=== PATIENT | male | born 1995 | race Caucasian/White ===

== ENCOUNTER 2017-09-13 00:50 | Inpatient (IN) | payer OTHER ==
[2017-09-13] MEDS ORDERED: ZOFRAN IV ONE (00:55)
[2017-09-13] MEDS ORDERED: ZOFRAN ONE (00:59)
--- NOTE | 2017-09-13 01:02 | Emergency Department Report ---
HPI - General Time Seen by Provider: 09/13/17 00:57 - HPI HPI: This is a 22-year-old male presents to the emergency department via EMS with altered mental status. The parents are currently bedside and say that his sister was talking with him this evening when he began crying, and then went unresponsive and fell to the ground. 911 was called and the patient has been unresponsive since. He was given some Narcan without much relief. He has a history of previous back surgery back in October for which she used to take Burdine and Flexeril but it is unknown whether he was taking these medications this evening. Family also denies that there was any excessive alcohol use this evening. They say that he has been depressed lately but he does not have any diagnosed psychiatric conditions and is not on any psychiatric medications. Patient is currently a poor historian secondary to his current medical condition and acuity. ED Review of Systems ROS: Stated complaint: OVERDOSE Other details as noted in HPI Comment: Unobtainable due to pts medical conditions Physical Exam - Physical Exam Physical Exam: GENERAL: The patient is ill-appearing and unresponsive. HENT: Normocephalic. Atraumatic. Patient has moist mucous membranes. EYES: Pupils equal reactive to light bilaterally. NECK: Supple. Trachea is midline. CHEST/LUNGS: Clear to auscultation. There is no respiratory distress noted. HEART/CARDIOVASCULAR: Regular. There is no tachycardia. There is no gallop rub or murmur. ABDOMEN: Abdomen is soft, nontender. Patient has normal bowel sounds. There is no abdominal distention. SKIN: Skin is warm and dry. NEURO: The patient is mostly unresponsive. He will withdraw slightly from painful stimuli. He has a gag reflex. Otherwise he is nonverbal and not following any commands. MUSCULOSKELETAL: There is no tenderness or deformity. There is no evidence of acute injury. ED Course - Reevaluation(s) Reevaluation #1: The patient is starting to become more awake and alert. He denies taking any pills or medication this evening but says that he did attempt to kill himself by overdose of Burdine and/or Flexeril yesterday. Currently he denies any discomfort but does not remember coming to the emergency department. 09/13/17 02:25 ED Medical Decision Making - Lab Data Result diagrams: 09/13/17 01:14 11/19/17 01:14 - Radiology Data Radiology results: report reviewed PROCEDURE: CT HEAD/BRAIN WO CON TECHNIQUE: Computerized tomography of the head was performed without contrast material. HISTORY: Altered Mental Status COMPARISON: No prior studies are available for comparison. FINDINGS: Skull and scalp: Normal. Paranasal sinuses: There are bilateral polyps or retention cysts in the maxillary sinuses. There are no air-fluid levels.. Ventricles and subarachnoid spaces: Normal. Cerebrum: No evidence of hemorrhage, acute infarction or mass . Cerebellum and brainstem: No evidence of hemorrhage, acute infarction or mass. Vasculature: Normal. Comments: None. IMPRESSION: Normal Examination Transcribed By: CO Dictated By: CONCETTA MO MD Electronically Authenticated By: CONCETTA MO MD Signed Date/Time: 09/12/172224 - Medical Decision Making 22-year-old male presents after being unresponsive at home. He did not have any reaction to the Narcan, at least at first. The patient did have a gag reflex and withdrew from painful stimuli. He had some stable appearing vitals including no hypoxia and therefore the patient avoided intubation upon presentation. His labs show a elevated lactic acid level and a blood alcohol level of 0.13 and urine drug screen positive for marijuana. He was reevaluated multiple times over multiple hours and has steadily become more awake and alert. He does not remember how he got to the emergency department but is AAO 3 with intact cranial nerves at this time. He admits to some recent depression and a suicide attempt 24 hours ago by overdose of his Burdine. Urine drug screen is currently negative for opiates and his acetaminophen level is negative so this does not appear to add up, but nonetheless the patient has been made a 1013. He will be admitted medically first to trend the lactic acid level and monitor to make sure there is no relapse into his sedation or altered mental status and he has been accepted for admission by the hospitalist, Dr Monaco, who has asked for me to place bridging orders to the med / surg floor. - Differential Diagnosis overdose, depression, bipolar disorder, alcohol abuse, sepsis Critical Care Time: No Critical care attestation.: If time is entered above; I have spent that time in minutes in the direct care of this critically ill patient, excluding procedure time. ED Disposition Clinical Impression: Alcohol abuse, Suicidal ideations, Lactic acid increased Altered mental status Qualifiers: Altered mental status type: unspecified Qualified Code(s): R41.82 - Altered mental status, unspecified Disposition: DC-09 OP ADMIT IP TO THIS HOSP Is pt being admited?: Yes Condition: Fair Referrals: PRIMARY CARE,MD [Primary Care Provider] - 3-5 Days Time of Disposition: 03:41
[2017-09-13 01:11] LABS: Urine Drugs of Abuse Note Disclamer
[2017-09-13 01:31] LABS: Basophils % (Auto) 0.8 % (0.0-1.8); Eosinophils % (Auto) 0.8 % (0.0-4.3); Hematocrit 47.9 % (35.5-45.6); Hemoglobin 15.3 gm/dl (11.8-15.2); Mean Corpuscular HGB Conc 32 % (32-34); Mean Corpuscular Hemoglobin 28 pg (28-32); Mean Corpuscular Volume 89 fl (84-94); Platelet Count 261 K/mm3 (140-440); Red Blood Count 5.41 M/mm3 (3.65-5.03); Red Cell Distribution Width 13.9 % (13.2-15.2); White Blood Count 7.4 K/mm3 (4.5-11.0)
[2017-09-13 01:36] LABS: Bilirubin,Urine NEG (Negative); Blood,Urine NEG (Negative); Ketones,Urine NEG (Negative); Leukocyte Esterase,Urine NEG (Negative); Nitrite,Urine NEG (Negative); Protein,Urine <15 mg/dL mg/dL (Negative); RBC,Urine < 1.0 /HPF (0.0-6.0); Urobilinogen,Urine < 2.0 mg/dL (<2.0)
[2017-09-13 01:39] LABS: Alanine Aminotransferase 13 units/L (7-56); Albumin 4.5 g/dL (3.9-5); Albumin/Globulin Ratio 1.7 %; Alkaline Phosphatase 84 units/L (35-129); Anion Gap 20 mmol/L; BUN/Creatinine Ratio 10; Blood Urea Nitrogen 8 mg/dL (9-20); Carbon Dioxide 24 mmol/L (22-30); Creatine Kinase 204 units/L (55-170); Glucose 84 mg/dL (75-100); Potassium 3.6 mmol/L (3.6-5.0); Sodium 145 mmol/L (137-145); Total Protein 7.1 g/dL (6.3-8.2)
[2017-09-13 01:42] LABS: INR 1.03 (0.87-1.13)
[2017-09-13 01:43] LABS: Partial Thromboplastin Time 25.9 Sec. (24.2-36.6)
[2017-09-13] MEDS ORDERED: NACL 0.9% 1000 ML 1,000 ML IV ONE (02:11)
--- NOTE | 2017-09-13 02:33 | Cat Scan Report ---
FINAL REPORT PROCEDURE: CT HEAD/BRAIN WO CON TECHNIQUE: Computerized tomography of the head was performed without contrast material. HISTORY: Altered Mental Status COMPARISON: No prior studies are available for comparison. FINDINGS: Skull and scalp: Normal. Paranasal sinuses: There are bilateral polyps or retention cysts in the maxillary sinuses. There are no air-fluid levels.. Ventricles and subarachnoid spaces: Normal. Cerebrum: No evidence of hemorrhage, acute infarction or mass . Cerebellum and brainstem: No evidence of hemorrhage, acute infarction or mass. Vasculature: Normal. Comments: None. IMPRESSION: Normal Examination
--- NOTE | 2017-09-13 04:00 | History and Physical Report ---
History of Present Illness Date of examination: 09/13/17 Chief complaint: Altered mental status History of present illness: 22-year-old male with medical history significant for depression presented to the emergency department for the complaints of altered mental status. Patient tried to kill himself with overdose of hydrocodone because his brother 3 years ago. Patient has confusion this afternoon. Patient didn't passed out, didn't have any seizure episode. No fever, chills, cough, abdominal pain. REVIEW OF SYSTEMS: GENERAL: no weight change, no fatigue, no fever HEAD: no head ache EYES: no blurry vision, no acute visual loss EARS: no hearing loss, no discharge, no earache NOSE: no stuffiness, no sneezing, no discharge MOUTH, THROAT AND NECK: no bleeding gums, no sore throat, no swollen neck CARDIAC: no palpitations, no dyspnea on exertion, no orthopnea, no PND, no edema , no chest pain RESPIRATORY: no shortness of breath, no wheeze, no cough, no sputum, no hemoptysis, no asthma GI: no decreased appetite, no nausea, no vomiting, no dysphagia, no diarrhea, no constipation, no abdominal pain URINARY: no change in frequency, no urgency, no polyuria, no hematuria, no incontinence MUSCULOSKELETAL: no muscle weakness, no pain, no joint stiffness NEUROLOGIC: no loss of sensation/numbness, no tingling, no tremors, no weakness/ paralysis HEMATOLOGIC: no anemia, no easy bruising SKIN: no rashes ENDOCRINE: no heat/cold intolerance, no polyuria, no polydipsia, no thyroid problems, no diabetes PSYCHIATRIC: no anxiety, no depression, no suicidal ideations Past History Past Medical History: other (depression) Past Surgical History: Other (back surgery) Social history: smoking (smokes marijuana), alcohol abuse (drinks alcohol every day), prescription drug abuse (hydrocodone), full code Family history: no significant family history Medications and Allergies Active Meds: Active Medications Heparin Sodium (Porcine) (Heparin) 5,000 unit SUB-Q Q8HR YULIANA Exam - Physical Exam Narrative exam: Not in cardiopulmonary distress. The patient appeared well nourished and normally developed. Vital signs as documented. Head exam is unremarkable. No scleral icterus . Neck is without jugular venous distension, thyromegaly, or carotid bruits. Lungs are clear to auscultation. Cardiac exam reveals regular rate and Rhythm. First and second heart sounds normal. No murmurs, rubs or gallops. Abdominal exam reveals normal bowel sounds, no masses, no organomegaly and no aortic enlargement. Extremities are nonedematous and both femoral and pedal pulses are normal. YARDING ENGINEER: Alert and oriented 3. No focal weakness. - Constitutional Vitals: Temp Pulse Resp BP Pulse Ox 98.0 F 76 11 L 120/57 100 09/13/17 01:15 09/13/17 03:30 09/13/17 03:30 09/13/17 03:30 09/13/17 01:15 Results - Labs CBC & Chem 7: 09/13/17 01:14 09/13/17 01:14 Labs: Laboratory Last Values WBC 7.4 K/mm3 (4.5-11.0) 09/13/17 01:14 RBC 5.41 M/mm3 (3.65-5.03) H 09/13/17 01:14 Hgb 15.3 gm/dl (11.8-15.2) H 09/13/17 01:14 Hct 47.9 % (35.5-45.6) H 09/13/17 01:14 MCV 89 fl (84-94) 09/13/17 01:14 MCH 28 pg (28-32) 09/13/17 01:14 MCHC 32 % (32-34) 09/13/17 01:14 RDW 13.9 % (13.2-15.2) 09/13/17 01:14 Plt Count 261 K/mm3 (140-440) 09/13/17 01:14 Lymph % (Auto) 32.8 % (13.4-35.0) 09/13/17 01:14 [place] % (Auto) 7.0 % (0.0-7.3) 09/13/17 01:14 Eos % (Auto) 0.8 % (0.0-4.3) 09/13/17 01:14 Baso % (Auto) 0.8 % (0.0-1.8) 09/13/17 01:14 Lymph # 2.4 K/mm3 (1.2-5.4) 09/13/17 01:14 [place] # 0.5 K/mm3 (0.0-0.8) 09/13/17 01:14 Eos # 0.1 K/mm3 (0.0-0.4) 09/13/17 01:14 Baso # 0.1 K/mm3 (0.0-0.1) 09/13/17 01:14 Seg Neutrophils % 58.6 % (40.0-70.0) 09/13/17 01:14 Seg Neutrophils # 4.3 K/mm3 (1.8-7.7) 09/13/17 01:14 PT 14.0 Sec. (12.2-14.9) 09/13/17 01:14 INR 1.03 (0.87-1.13) 09/13/17 01:14 APTT 25.9 Sec. (24.2-36.6) 09/13/17 01:14 Sodium 145 mmol/L (137-145) 09/13/17 01:14 Potassium 3.6 mmol/L (3.6-5.0) 09/13/17 01:14 Chloride 105.0 mmol/L (98-107) 09/13/17 01:14 Carbon Dioxide 24 mmol/L (22-30) 09/13/17 01:14 Anion Gap 20 mmol/L 09/13/17 01:14 BUN 8 mg/dL (9-20) L 09/13/17 01:14 Creatinine 0.8 mg/dL (0.8-1.5) 09/13/17 01:14 Estimated GFR > 60 ml/min 09/13/17 01:14 BUN/Creatinine Ratio 10 % 09/13/17 01:14 Glucose 84 mg/dL (75-100) 09/13/17 01:14 Lactic Acid 2.80 mmol/L (0.7-2.0) H* 09/13/17 01:14 Calcium 9.0 mg/dL (8.4-10.2) 09/13/17 01:14 Total Bilirubin 0.60 mg/dL (0.1-1.2) 09/13/17 01:14 AST 15 units/L (5-40) 09/13/17 01:14 ALT 13 units/L (7-56) 09/13/17 01:14 Alkaline Phosphatase 84 units/L (35-129) 09/13/17 01:14 Ammonia 37.0 umol/L (25-60) 09/13/17 01:14 Total Creatine Kinase 204 units/L (55-170) H 09/13/17 01:14 Troponin T < 0.010 ng/mL (0.00-0.029) 09/13/17 01:14 Total Protein 7.1 g/dL (6.3-8.2) 09/13/17 01:14 Albumin 4.5 g/dL (3.9-5) 09/13/17 01:14 Albumin/Globulin Ratio 1.7 % 09/13/17 01:14 Urine Color Straw (Yellow) 09/13/17 Unknown Urine Turbidity Clear (Clear) 09/13/17 Unknown Urine pH 7.0 (5.0-7.0) 09/13/17 Unknown Ur Specific [place] 1.002 (1.003-1.030) L 09/13/17 Unknown Urine Protein <15 mg/dl mg/dL (Negative) 09/13/17 Unknown Urine Glucose (UA) Neg mg/dL (Negative) 09/13/17 Unknown Urine Ketones Neg mg/dL (Negative) 09/13/17 Unknown Urine Blood Neg (Negative) 09/13/17 Unknown Urine Nitrite Neg (Negative) 09/13/17 Unknown Urine Bilirubin Neg (Negative) 09/13/17 Unknown Urine Urobilinogen < 2.0 mg/dL (<2.0) 09/13/17 Unknown Ur Leukocyte Esterase Neg (Negative) 09/13/17 Unknown Urine WBC (Auto) 1.0 /HPF (0.0-6.0) 09/13/17 Unknown Urine RBC (Auto) < 1.0 /HPF (0.0-6.0) 09/13/17 Unknown Salicylates < 0.3 mg/dL (2.8-20.0) L 09/13/17 01:14 Urine Opiates Screen Presumptive negative 09/13/17 Unknown Urine Methadone Screen Presumptive negative 09/13/17 Unknown Acetaminophen < 15.0 ug/mL (10.0-30.0) 09/13/17 01:14 Ur Barbiturates Screen Presumptive negative 09/13/17 Unknown Ur Phencyclidine Scrn Presumptive negative 09/13/17 Unknown Ur Amphetamines Screen Presumptive negative 09/13/17 Unknown U Benzodiazepines Scrn Presumptive negative 11/19/17 Unknown Urine Cocaine Screen Presumptive negative 09/13/17 Unknown U Marijuana (THC) Screen Presumptive positive 09/13/17 Unknown Drugs of Abuse Note Disclamer 09/13/17 Unknown Plasma/Serum Alcohol 0.13 gm% (0-0.07) H 09/13/17 01:14 Assessment and Plan Assessment and plan: Confusion Suicidal intent Drug overdose Lactic acidosis Alcohol abuse risk for DT - patient is on 1013 - We'll put him on IV fluids - Psych consult - [facility] protocol DVT prophylaxis - Lovenox Disposition - Admit to medical floor Advance Directives: Yes VTE prophylaxis?: Chemical Plan of care discussed with patient/family: Yes
--- NOTE | 2017-09-13 04:45 | XRay Report ---
FINAL REPORT PROCEDURE: XR CHEST 1V AP TECHNIQUE: Chest radiograph anteroposterior view. CPT 14185 HISTORY: Altered Mental Status COMPARISON: No prior studies are available for comparison. FINDINGS: Heart: Normal. Mediastinum/Vessels: Normal. Lungs/Pleural space: Normal. Bony thorax: No acute osseous abnormality. Life support devices: None. IMPRESSION: No acute cardiopulmonary abnormality.
[2017-09-13] MEDS ORDERED: HEPARIN SUB-Q SCH (06:00)
[2017-09-13] MEDS: LOVENOX SUB-Q SCH (10:42)
--- NOTE | 2017-09-13 12:16 | Consultation ---
History of Present Illness - Reason for Consult Consult date: 09/13/17 Reason for consult: Mental Health Evaluation Requesting physician: HOLLIE GAINES - Chief Complaint Chief complaint: "I made a mistake" - History of Present Psychiatric Illness This is a 22-year-old male presents to the emergency department via EMS with altered mental status. Today patient is calm and cooperative, but withdrawn during the assessment. He stated that depression has been a issue for him since he was a teenager. He stated that his best friend, his brother committed suicide a couple years ago which exacerbated his depression. He stated being unemployed and that his "bills" are piling up on him. He stated that he wanted to "" when he took a hand full of Parks pills, because of sadness, thinking about his brother, and how hard life has been to him. He stated that he felt like this ("overwhelmed") in the past, but never thought about killing himself. He stated that he took an antidepressant before, but could not ID the medication. He stated drinking alcohol (etoh) more recently and smoking marijuana everyday to ease the depression. He stated that he should have called the crisis hotline before taking the pills. He denies SI/HI's and AVH's. He denies sleep disturbance, but admit to a poor appetite the past month. He denies any manic episodes. Medications and Allergies Allergies Allergy/AdvReac Type Severity Reaction Status Date / Time No Known Allergies Allergy Unverified 09/13/17 04:43 Active Meds: Active Medications Enoxaparin Sodium (Lovenox) 40 mg SUB-Q DAILY YULIANA Last Admin: 09/13/17 10:42 Dose: 40 mg Sodium Chloride (Nacl 0.9% 1000 Ml) 1,000 mls @ 150 mls/hr IV DIRECT YULIANA Past psychiatric history - Past Medical History Past Medical History: No medical history Past Surgical History: No surgical history - past Psychiatric treatment and history Psych: Depression psychiatric treatment history: Saw a psychiatrist as an adolescent for depression. A fam hx of depression. - Social History Social history: lives with family (Pending his GED) Mental Status Exam - Vital signs Last Vital Signs Temp 98.7 F 09/13/17 09:17 Pulse 63 09/13/17 09:17 Resp 18 09/13/17 09:17 BP 123/67 09/13/17 09:17 Pulse Ox 99 09/13/17 09:17 - Exam Narrative exam: MSE: Appearance: calm, cooperative Behavior: regular eye contact Speech: regular rate and tone Mood: withdrawn Affect: flat Thought Process: linear Thought Content: denies SI/HI's and AVH's Motor Activity: ambulatory Cognition: A/O x3 Insight: variable Judgment: variable Results Result Diagrams: 09/13/17 01:14 09/13/17 01:14 Abnormal lab results 09/13/17 09/13/17 09/13/17 Range/Units 01:14 01:14 01:14 RBC 5.41 H (3.65-5.03) M/mm3 Hgb 15.3 H (11.8-15.2) gm/dl Hct 47.9 H (35.5-45.6) % BUN 8 L (9-20) mg/dL Lactic Acid 2.80 H* (0.7-2.0) mmol/L Total Creatine Kinase 204 H (55-170) units/L Ur Specific [place] (1.003-1.030) Salicylates (2.8-20.0) mg/dL Plasma/Serum Alcohol (0-0.07) gm% 09/13/17 09/13/17 09/13/17 Range/Units 01:14 01:14 Unknown RBC (3.65-5.03) M/mm3 Hgb (11.8-15.2) gm/dl Hct (35.5-45.6) % BUN (9-20) mg/dL Lactic Acid (0.7-2.0) mmol/L Total Creatine Kinase (55-170) units/L Ur Specific [place] 1.002 L (1.003-1.030) Salicylates < 0.3 L (2.8-20.0) mg/dL Plasma/Serum Alcohol 0.13 H (0-0.07) gm% All other labs normal. Assessment and Plan Assessment and plan: Impression: MDD Severe Type. Alcohol Use DO. Substance Use DO (marijuana). Today patient is calm and cooperative, but withdrawn during the assessment. Alcohol serum on admission 0.13. DDx: R/O Bipolar, R/O Alcohol Induced Mood DO, R/O Substance Induced Mood DO Recommendation/Plan: Continue 1013 with placement to inpatient psy services. Start Remeron 15 mg PO HS for depression. Remeron may stimulate patient's appetite. Discussed possible suicidality/medication induced gris with patient reference Remeron. Discussed with patient the importance to abstain from recreational drug use and excessive alcohol consumption (etoh). Discussed generalized coping skills with patient.
--- NOTE | 2017-09-13 13:00 | Event Note ---
Date: 09/13/17 Patient seen and examined in no acute distress counseling provided about alcohol abuse 15 minutes spent. Repeat lactic acidosis. Continue gentle hydration.
[2017-09-13] MEDS: NACL 0.9% 1000 ML 1,000 ML IV SCH (13:40)
[2017-09-13] MEDS ORDERED: REMERON PO SCH (22:00)
[2017-09-14] MEDS: NACL 0.9% 1000 ML 1,000 ML IV SCH (00:09)
[2017-09-14] MEDS: LOVENOX SUB-Q SCH (09:52)
--- NOTE | 2017-09-14 11:27 | Progress Note ---
Subjective - Reason for Consult Consult date: 09/14/17 Reason for consult: Psychiatry Follow-up - Chief Complaint Chief complaint: "My family was here yesterday" This is a 22-year-old male presents to the emergency department via EMS with altered mental status. Today patient is calm and cooperative during the assessment. He stated that his family came to see him yesterday. He stated that he "see hope" once he is released from the 1013. He denies SI/HI's and AVH' s. He rate his depression 5/10, with 10 being the worse. He denies any side effects of his medication. Mental Status Exam - Vital signs Last Vital Signs Temp 98.2 F 09/14/17 08:37 Pulse 60 09/14/17 08:37 Resp 18 09/14/17 08:37 BP 99/45 09/14/17 08:37 Pulse Ox 99 09/14/17 08:37 - Exam Narrative exam: MSE: Appearance: calm, cooperative Behavior: regular eye contact Speech: regular rate and tone Mood: "okay" Affect: flat Thought Process: linear Thought Content: denies SI/HI's and AVH's Motor Activity: ambulatory Cognition: A/O x3 Insight: variable Judgment: variable Assessment and Plan Impression: MDD Severe Type. Alcohol Use DO. Substance Use DO (marijuana). Today patient is calm and cooperative during the assessment. Alcohol serum on admission 0.13. DDx: R/O Bipolar, R/O Alcohol Induced Mood DO, R/O Substance Induced Mood DO Recommendation/Plan: Continue 1013 with placement to [facility] today. Continue Remeron 15 mg PO HS for depression. Remeron may stimulate patient's appetite. Discussed possible suicidality/medication induced gris with patient reference Remeron. Discussed with patient the importance to abstain from recreational drug use and excessive alcohol consumption (etoh). Discussed generalized coping skills with patient.
--- NOTE | 2017-09-14 13:32 | Discharge Summary ---
Providers - Providers Date of Admission: 09/13/17 03:41 Date of discharge: 09/14/17 Attending physician: RAGHU MANN 09/13/17 04:02 Consult to Mental Health [CONS] Routine Reason For Exam: sucidal attempt Place consult to:: mental health Notified:: yes Primary care physician: LEATHER CARVER Hospitalization Condition: Stable Hospital course: Patient presented with ams -Alcohol intoxication, last vodka with juice was Thursday, 0900. - No DTs now - MDD Severe Type. Alcohol Use DO. Substance Use DO (marijuana). Today patient is calm and cooperative during the assessment. Alcohol serum on admission 0.13. -Drug OD per psych: "Recommendation/Plan: Continue 1013 with placement to [facility] today. Continue Remeron 15 mg PO HS for depression. Remeron may stimulate patient's appetite. Discussed possible suicidality/medication induced gris with patient reference Remeron. Discussed with patient the importance to abstain from recreational drug use and excessive alcohol consumption (etoh). Discussed generalized coping skills with patient." Disposition: DC/TX-65 PSY HOSP/PSY UNIT Time spent for discharge: 32 minutes Core Measure Documentation - Palliative Care Palliative Care/ Comfort Measures: Not Applicable - Core Measures Any of the following diagnoses?: none - VTE Discharge Requirements Deep Vein Thrombosis/Pulmonary Embolism Present on Admission: No Has pt received <5 days of overlap therapy or INR<2.0: No Anticoagulant overlap therapy prescribed at discharge: No Contraindication No Overlap Therapy order at DC: Not Indicated Exam - Physical Exam Narrative exam: GEN: WDWN, NAD, AWAKE, ALERT, ORIENTATED 3 HEENT: NCAT, EOMI, PERRL, OP Clear NECK: supple, no adenopathy, no thyromegaly, no JVD CVS/HEART: RRR, NORMAL S1S2, NO JVD, pulses present bilaterally CHEST/LUNGS: CTA B, Symmetrical chest expansion, good air entry bilaterally GI/Abdomen: soft, NTND, good bowel sounds, no guarding or rebound /Bladder: no suprapubic tenderness, no CVA or paraspinal tenderness EXT/Skin: no c/c/e, no obvious rash MSK: FROM x 4 Neuro: CN 2-12 grossly intact, no focal deficits, no tremors Psych: calm - Constitutional Vitals: Temp Pulse Resp BP Pulse Ox 98.2 F 60 18 99/45 99 11/20/17 08:37 09/14/17 08:37 09/14/17 08:37 09/14/17 08:37 09/14/17 08:37 Plan Activity: no driving until cleared by PCP, other (no strenous activity until cleared by pcp) Diet: regular Follow up with: PRIMARY CARE, [Primary Care Provider] - 3-5 Days Prescriptions: chlordiazePOXIDE [Librium] 50 mg PO Q8H #3 day
[2017-09-14 15:18] VITALS: BP 111/53
== END 2017-09-14 15:30 | DRG 917 ==
LOC: ED 00:50 → 3A 03:41
PROVIDERS: ADMIT Internal Medicine; ATTEND Internal Medicine
DX: T40.692A Poisoning by other narcotics, intentional self-harm, initial encounter (principal); G92 Toxic encephalopathy; R45.851 Suicidal ideations; E87.2 Acidosis; R41.82 Altered mental status, unspecified; F10.129 Alcohol abuse with intoxication, unspecified; F12.90 Cannabis use, unspecified, uncomplicated; F32.9 Major depressive disorder, single episode, unspecified; T48.1X2A Poisoning by skeletal muscle relaxants [neuromuscular blocking agents], intentional self-harm, initial encounter; Y92.89 Other specified places as the place of occurrence of the external cause
CPT/HCPCS: 70450; 71010; 80053; 80307; 80320; 81001; 82140; 82550; 84484; 85025; 85610; 85730; 93005; 93010; 96374; G0480; J1650; J2405; J7030